=== PATIENT | male | born 1990 | race Caucasian/White ===

== ENCOUNTER → 2020-08-11 13:46 | Outpatient (CLI) | payer OTHER, SELFPAY ==
--- NOTE | ~2020-08-11 | XR_ITS ---
XR lumbar spine min 4V 08/11/2020 14:01 Indication: Low back pain Procedure: 5 views lumbar spine Comparison: No prior studies for comparison. Findings: Normal lumbar lordosis. Vertebral body heights are maintained. Mild disc narrowing at L4-5 and L5-S1. There is mild facet hypertrophy at L4-5 and L5-S1. No fracture, subluxation or spondylolis thesis. Pedicles intact. Sacral foramen are symmetric. Impression: 1: Mild lumbar spondylosis. Reviewed, dictated and finalized at location B. Impression: 1: Mild lumbar spondylosis.
== END ==
PROVIDERS: PCP Family Medicine; Visit Provider Family Medicine
DX: M47.817 Spondylosis without myelopathy or radiculopathy, lumbosacral region (principal); M54.42 Lumbago with sciatica, left side
CPT/HCPCS: 72110

== ENCOUNTER 2020-08-17 08:37 | Emergency (ER) | payer OTHER, SELFPAY ==
[2020-08-17 08:48] VITALS: BP 137/77; PULSE 74; RESP 16; TEMP 35.8; O2SAT 100
[2020-08-17] MEDS: LIDOCAINE 5% PATCH 1 PATCH TRANSDERM (09:52)
[2020-08-17 09:55] VITALS: BP 125/78; PULSE 60; RESP 16; O2SAT 100
--- NOTE | 2020-08-17 10:15 | ED.GENADULT ---
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 pain is localized to the left lower back radiates down to the left heel patient has been in touch with primary care for this took steroids and meloxicam with minimal improvement patient had x-rays which show degenerative changes in the lumbar spine per patient patient was referred to emergency department today due to increasing pain patient denies other injury or trauma or recent illness presents in no distress resting comfortably in the room Related Data Allergies Allergy/AdvReac Type Severity Reaction Status Date / Time levofloxacin Allergy Verified 02/28/13 12:17 Review of Systems Review of Systems: All systems reviewed & are unremarkable except as noted in HPI and below PMFSH Past Medical History Medical History Acute bilateral low back pain with left-sided sciatica Adult BMI 30.0-30.9 kg/sq m Gastroenteritis and colitis, viral Subcutaneous nodule (~08/09/20) left buttock 1 cm Family History Family History Mother Patient's mother is in good health Social History Social History Smoking status: Never smoker Alcohol intake: current Drinks per week: 2 Substance use: current Substance use type: marijuana Gender identity (if verbalized by the patient): Male Exam Narrative: Exam Narrative: GENERAL: Well-appearing, well-nourished, and in no acute distress. HEAD: Normocephalic, atraumatic. EYES: PERRLA and EOMI. ENT: Nares clear, no rhinorrhea or epistaxis. Mucous membranes moist. CHEST: Clear to auscultation. No respiratory distress. No wheezes rales or rhonchi HEART: Regular rate and rhythm. No murmur heard. EXTREMITIES: Normal range of motion. No edema. Tenderness over the left SI joint no deformities noted no midline tenderness SKIN: Warm, dry, no rash. NEURO: No focal deficits. Alert and oriented x3. Cranial nerves II through XII grossly intact. Normal speech and gait. Motor and sensory intact and symmetrical in the extremities. PSYCH: Normal mood and affect. Course Course Emergency Course: Patient in the room no distress plan for patient to follow with primary care and pain management if he chooses will go back to primary care to discuss over modalities such as physical therapy and for referrals if necessary patient agrees with this plan will be placed on lidocaine patch muscle relaxers as an adjunct. Patient afebrile nontoxic-appearing no distress felt appropriate for outpatient reevaluation also provided with reasons to return Vital Signs Vital signs: Vital Signs Temperature 96.4 F L 08/17/20 08:48 Pulse Rate 74 08/17/20 08:48 Respiratory Rate 16 08/17/20 08:48 Blood Pressure 137/77 08/17/20 08:48 Pulse Oximetry 100 08/17/20 08:48 Temperature 96.4 F L 08/17/20 08:48 Pulse Rate 60 08/17/20 09:55 Respiratory Rate 16 08/17/20 09:55 Blood Pressure 125/78 08/17/20 09:55 Pulse Oximetry 100 08/17/20 09:55 Medical Decision Making MDM Narrative Medical decision making narrative: Patients pain is positional in nature and localized to back without signs of cord compression or cauda equina based on neurological exam, skeletal exam and history. No fever or other significant factors to suggest osteomyelitis or spinal epidural abscess. No symptoms or signs to suggest pain is referred from abdominal or / cardiopulmonary sources. No pulsatile masses noted on exam. Patient ambulates with steady gait and
== END 2020-08-17 10:34 | disposition home or self-care (01) ==
PROVIDERS: Emergency Provider Emergency Medicine; PCP Family Medicine
DX: M54.16 Radiculopathy, lumbar region (principal)
CPT/HCPCS: 99283; A9270

== ENCOUNTER → 2020-09-09 11:11 | Outpatient (CLI) | payer OTHER, SELFPAY ==
--- NOTE | ~2020-09-09 | MR_ITS ---
EXAMINATION: MR lumbar spine wo con DATE: 09/09/2020 12:00 INDICATION: Low back pain. Lumbar radiculopathy. TECHNIQUE: Magnetic resonance imaging (MRI) of the lumbar spine was performed without intravenous con trast. Sequences included sagittal T2-weighted FSE, sagittal T2-weighted FS FSE, sagittal T1-weighted FSE, and axial T2-weighted FSE. COMPARISON: Lumbar spine radiographs 08/11/2020 FINDINGS: There is 3 mm retrolisthesis of L5 on S1. There is mild chronic anterior wedging of T12 vinny tebral body. There are Schmorl's nodes from T11-T12 through L1-L2 and at superior endplate of L4. The re is moderately decreased disc height at L5-S1. The distal spinal cord signal intensity is normal. T he conus medullaris is at L1. The following disc levels are specifically discussed: L1-L2 through L4-L5: The disc does not extend beyond the endplate margin. There is no facet joint ost eoarthritis. There is no neural foraminal stenosis. There is no central canal stenosis. L5-S1: The disc is bulging with superimposed left central and subarticular zone extrusion with mass e ffect on left S1 nerve root in left lateral recess. A right subarticular zone extrusion abuts right S 1 nerve root in right lateral recess. There is mild bilateral facet joint osteoarthritis. There is mi ld right and moderate left neural foraminal stenosis. There is mild central canal stenosis. IMPRESSION: 1. Moderate spondylosis at L5-S1 where extrusions abut the right S1 nerve root and exert mass effect on the left S1 nerve root. Reviewed, dictated and finalized at location A.
== END ==
PROVIDERS: PCP Family Medicine; Visit Provider Nurse Practitioner Adult Health
DX: M47.26 Other spondylosis with radiculopathy, lumbar region (principal); M51.27 Other intervertebral disc displacement, lumbosacral region
CPT/HCPCS: 72148

== ENCOUNTER 2023-04-17 17:27 | Emergency (ER) | payer OTHER, SELFPAY ==
--- NOTE | ~2023-04-17 | CT_ITS ---
EXAMINATION: CT cervical spine wo con DATE: 04/17/2023 20:04 INDICATION: Head and neck trauma TECHNIQUE: Computed tomography (CT) of the cervical spine was performed without intravenous contrast. Automated exposure control and iterative reconstruction technique were employed. The dose-length pro duct was 465.00 mGy-cm. COMPARISON: None FINDINGS: Alignment is normal. Vertebral body and disc heights are normal. No fracture. Cervical uncovertebral joints are normal. Multilevel mild facet osteoarthritis at a few levels in the cervical spine and mor e prominently in the upper thoracic spine. No central canal or neural foraminal stenosis. Cervical so ft tissues are unremarkable. Visualized apices of lungs are clear. IMPRESSION: 1. No acute osseous abnormality. Reviewed, dictated and finalized at location A. CURER
--- NOTE | ~2023-04-17 | CT_ITS ---
EXAMINATION: CT brain wo con DATE: 04/17/2023 20:04 INDICATION: Head injury and syncope TECHNIQUE: Computed tomography (CT) of the head was performed without intravenous contrast. Sagittal and coronal reconstructions were performed. The mA was adjusted according to patient size. Iterative reconstruction technique was employed. The dose-length product was 605.33 mGy-cm. COMPARISON: None FINDINGS: No fracture. No acute intracranial hemorrhage, acute infarction or abnormal extra axial fluid collect ion. Ventricles are normal and symmetric. No mass/mass effect. Mild mucosal thickening in the left sp henoid sinus. The orbits, paranasal sinuses and mastoid air cells are normal. IMPRESSION: 1. Normal brain. No fracture or acute intracranial process. Reviewed, dictated and finalized at location A. [employer] MANAGER
--- NOTE | ~2023-04-17 | XR_ITS ---
EXAMINATION: XR chest 1V portable DATE: 04/17/2023 19:35 INDICATION: Syncopal episode one day prior. TECHNIQUE: frontal view of the chest was obtained. COMPARISON: Chest radiograph dated 02/28/2013 FINDINGS: The lungs remain clear with no focal airspace opacities, pulmonary edema, pleural effusion or pneumot horax. The cardiomediastinal silhouette is normal. Visualized bones and soft tissues are unremarkable . IMPRESSION: 1. Normal chest radiograph. Reviewed, dictated and finalized at location A. 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 Normal chest radiograph.
[2023-04-17 17:32] VITALS: BP 146/74; PULSE 63; RESP 16; TEMP 36.9; O2SAT 100
--- NOTE | 2023-04-17 18:52 | ECG_ITS ---
Measurements Intervals [place] Rate: 66 P: 19 DC: 146 QRS: 96 QRSD: 136 T: 44 QT: 376 QTc: 396 Interpretive Statements SINUS RHYTHM RIGHT AXIS DEVIATION INTRAVENTRICULAR CONDUCTION DELAY BORDERLINE ECG NO PREVIOUS ECG AVAILABLE FOR COMPARISON Electronically Signed On 04-17-2023 20:00:56 [employer] DRAFT[employer]ERSON by Sammy Michaels D.O.
[2023-04-17 19:08] VITALS: BP 135/79; PULSE 66; RESP 14; O2SAT 98
[2023-04-17 19:15] LABS: Basophils Absolute Auto 0.1 K/mm3 (0.0-0.1); Basophils Percent Auto 0.5 % (0.2-1.2); Eosinophils Absolute Auto 0.1 K/mm3 (0-0.3); Eosinophils Percent Auto 0.7 % (0-4.4); Hematocrit 43.9 % (42.0-52.0); Hemoglobin 14.9 g/dL (14.0-18.0); Immature Granulocyte Absolute 0.03 K/mm3 (0.00-0.031); Immature Granulocyte Percent A 0.3 % (0-0.5); Lymphocytes Absolute Auto 2.17 K/mm3 (0.9-3.2); Lymphocytes Percent Auto 20.2 % (18.3-44.2); Mean Corpuscular HGB Conc 33.9 g/dl (32-36); Mean Corpuscular Volume 88.3 fl (80-100); Mean Platelet Volume 10.6 fl (7.4-10.4); Monocytes Absolute Auto 0.7 K/mm3 (0.1-0.6); Monocytes Percent Auto 6.1 % (2.6-8.5); Neutrophils Absolute Auto 7.8 K/mm3 (1.3-6.7); Neutrophils Percent Auto 72.2 % (45.5-73.1); Platelet Count Result 230 k/mm3 (150-375); Red Blood Count 4.97 M/mm3 (4.6-6.20); Red Cell Distribution Width 12.2 % (11.5-14.5); White Blood Count 10.7 K/mm3 (4.5-10.0)
[2023-04-17 19:22] LABS: Alanine Aminotransferase 31 U/L (6-50); Albumin Level 4.6 g/dL (3.5-5.1); Alkaline Phosphatase 89 U/L (38-126); Anion Gap 10 mmol/L (8-16); Aspartate Amino Transferase 30 U/L (17-59); Bilirubin,Total 0.5 mg/dL (0.2-1.3); Blood Urea Nitrogen 14 mg/dL (9-20); Calcium 9.4 mg/dL (8.4-10.2); Carbon Dioxide 22 mmol/L (22-30); Chloride 106 mmol/L (98-107); Estimated CRCL calculation 132 ml/min; Estimated Glomerular Filt Rate > 60; Glucose 102 mg/dL (65-110); Sodium 138 mmol/L (137-145)
[2023-04-17] MEDS: SODIUM CHLORIDE 0.9% IV 1,000 ML 999 ML IV CONT (19:38)
[2023-04-17 19:40] VITALS: BP 124/84; PULSE 69; RESP 12; O2SAT 98
[2023-04-17 20:10] LABS: Lactic Acid Reflex 0.7 mmol/L (0.7-2.0)
[2023-04-17 20:18] LABS: Appearance Urine Clear (Clear); Bilirubin Urine Negative (Negative); Blood Urine Negative (Negative); Color Urine Yellow (Yellow); Glucose Urine UA Negative (Negative); Ketones Urine Negative (Negative); Leukocyte Esterase Ur Negative LEU/UL (Negative); Nitrate Urine Negative (Negative); Protein Urine Negative (Negative); Specific Grav Ur 1.011 (1.001-1.035); Urobilinogen Urine 0.2 mg/dL (<2.0); pH Urine 6.5 (5.0-9.0)
[2023-04-17 20:23] LABS: Troponin I < 0.012 ng/mL (0.000-0.034)
--- NOTE | 2023-04-17 20:29 | ED.GENADULT ---
HPI - General Adult General Chief complaint: Unspecified Stated complaint: SYNCOPE HIT HEAD. ?SZ Time Seen by Provider: 04/17/23 19:10 History of Present Illness HPI narrative: Was 33-year-old gentleman who presents emerged from with chief complaint of syncopal episode. The patient reports that he had a ingrown hair that developed into a pimple on his penis patient reports that his significant other was helping him during the pimple and after words with some blood that drained out of the lesion and he got very lightheaded and passed out. The patient states he struck the back of his head on the left side and reports that he has pain in his neck and reports that he has felt sore today. The patient decided to come to the emergency department for evaluation. Patient reports no other episode of syncope. Related Data Home Medications Medication Instructions Recorded Confirmed medical cannabis BYMOUTH 01/22/22 02/03/23 magnesium oxide 500 mg capsule 500 mg PO BID 07/22/22 02/03/23 cetirizine 10 mg tablet (Zyrtec) 10 mg PO DAILY PRN 02/03/23 02/03/23 Allergies Allergy/AdvReac Type Severity Reaction Status Date / Time levofloxacin Allergy Unknown Verified 05/27/22 14:03 Review of Systems Review of Systems: A 10 system review of systems was completed on the patient and is negative except for what is stated in the HPI. Nursing and ancillary documentation was reviewed. [facility] Past Medical History Medical History Acute bilateral low back pain with left-sided sciatica Acute non-recurrent maxillary sinusitis Acute sinusitis Adult BMI 30.0-30.9 kg/sq m BMI 28.0-28.9,adult BMI 29.0-29.9,adult Chronic low back pain with left-sided sciatica MRI of the lumbar spine on 09/09/2020 with moderate to severe lumbar spondylosis at L5-S1 with extrusion and impingement on the left S1 nerve root. 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 Family History Family History Mother Patient's mother is in good health Social History Social History Smoking status: Never smoker Alcohol intake: current Alcohol use details: Rarely Substance use: current Substance use type: marijuana Lack of Transportation: No Lack of Food: Never True Current Housing: I Have Housing Concerned About Future Housing: No Difficulty Paying Gas/Electric Bills: No Difficulty Paying for Meds: No Currently Unemployed: No Education: Master's Degree or Higher Difficulty w/ Childcare or Family Care: No Gender identity (if verbalized by the patient): Male Exam Narrative: GENERAL: Well-appearing, well-nourished, and in no acute distress. HEAD: Normocephalic, atraumatic. EYES: PERRLA and EOMI. ENT: Nares clear, no rhinorrhea or epistaxis. Mucous membranes moist. Small abrasion present to the left auricle with slight hyperemia of the left arm pain but no hematoma and no laceration. NECK: Supple. CHEST: Clear to auscultation. No respiratory distress. HEART: Regular rate and rhythm. No murmur heard. Normal peripheral pulses. ABDOMEN: Soft, nontender, nondistended, normal active bowel sounds. : Small pebble present on the shaft of the penis EXTREMITIES: Normal range of motion. No edema. SKIN: Warm, dry, no rash. NEURO: No focal deficits. Alert and oriented x3. PSYCH: Normal mood and affect. Course Vital Signs Vital signs: Vital Signs Temperature 36.9 C 04/17/23 17:32 Pulse Rate 63 04/17/23 17:32 Respiratory Rate 16 04/17/23 17:32 Blood Pressure 146/74 H 04/17/23 17:32 Puls
[2023-04-17 20:31] LABS: Add Urine Microscopic? NO
[2023-04-17 20:46] VITALS: BP 124/86; PULSE 66; RESP 12; TEMP 36.7; O2SAT 95
== END 2023-04-17 20:47 | disposition home or self-care (01) ==
PROVIDERS: Emergency Medicine; Emergency Provider Emergency Medicine; PCP Family Medicine
DX: R55 Syncope and collapse (principal); S09.90XA Unspecified injury of head, initial encounter; W22.8XXA Striking against or struck by other objects, initial encounter
CPT/HCPCS: 36415; 70450; 71045; 72125; 80053; 81003; 83605; 83735; 84484; 85025; 93005; 96360; 99284; J7030

== ENCOUNTER 2023-04-27 17:15 | Emergency (ER) | payer OTHER, SELFPAY ==
[2023-04-27 17:20] VITALS: BP 135/81; PULSE 65; RESP 14; TEMP 36.3; O2SAT 100
--- NOTE | 2023-04-27 17:20 | ED.URI ---
HPI - URI/Sore Throat General Chief Complaint: Upper Respiratory Infection Stated Complaint: Fever/Dizziness/Light Headed History of Present Illness HPI Narrative: PATIENT PRESENTS WITH NASAL CONGESTION COUGH NO SHORTNESS OF BREATH NO CHEESE CHEST PAIN NO FEVER NO BODY ACHES. PATIENT HAS TAKEN SEVERAL HOME COVID TEST WHICH HAVE BEEN NEGATIVE. Related Data Home Medications Medication Instructions Recorded Confirmed medical cannabis BYMOUTH 01/22/22 02/03/23 Allergies Allergy/AdvReac Type Severity Reaction Status Date / Time levofloxacin Allergy Confusion Verified 04/27/23 17:37 Review of Systems Review of Systems: CONSTITUTIONAL: DENIES CHILLS, OR SWEATS. REPORTS FEVER AND GENERALIZED BODY ACHES EYES: DENIES VISUAL CHANGES, REDNESS, OR DISCHARGE. ENT: DENIES OTALGIA. REPORTS NASAL CONGESTION RUNNY NOSE AND SORE THROAT CARDIOVASCULAR: DENIES CHEST PAIN, PALPITATIONS, OR EDEMA. RESPIRATORY: DENIES DYSPNEA. REPORTS OCCASIONAL COUGH GASTROINTESTINAL: DENIES ABDOMINAL PAIN, NAUSEA, VOMITING, OR DIARRHEA. GENITOURINARY: DENIES DYSURIA OR HEMATURIA. SKIN: DENIES RASH OR ITCHING. MUSCULOSKELETAL: DENIES BACK PAIN, JOINT PAIN, OR MYALGIA. REPORTS GENERALIZED BODY ACHES NEUROLOGIC: DENIES HEADACHE, NUMBNESS, OR WEAKNESS. PSYCHIATRIC: DENIES ANXIETY OR DEPRESSION. [facility] Past Medical History Medical History Acute bilateral low back pain with left-sided sciatica Acute non-recurrent maxillary sinusitis Acute sinusitis Adult BMI 30.0-30.9 kg/sq m BMI 28.0-28.9,adult BMI 29.0-29.9,adult Chronic low back pain with left-sided sciatica MRI of the lumbar spine on 09/09/2020 with moderate to severe lumbar spondylosis at L5-S1 with extrusion and impingement on the left S1 nerve root. 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 Family History Family History Mother Patient's mother is in good health Social History Social History Smoking status: Never smoker Alcohol intake: current Alcohol use details: Rarely Substance use: current Substance use type: marijuana Lack of Transportation: No Lack of Food: Never True Current Housing: I Have Housing Concerned About Future Housing: No Difficulty Paying Gas/Electric Bills: No Difficulty Paying for Meds: No Currently Unemployed: No Education: Master's Degree or Higher Difficulty w/ Childcare or Family Care: No Gender identity (if verbalized by the patient): Male Comments AT TIME OF SIGNATURE, AGREE WITH NURSING PAST MEDICAL, SURGICAL, SOCIAL AND FAMILY HISTORY. THERE IS NO RELEVANT FAMILY HISTORY PERTINENT TO THE PRESENTING COMPLAINT Exam Narrative: THE PATIENT IS A WELL-DEVELOPED, WELL-NOURISHED IN NO ACUTE DISTRESS. SKIN: SKIN IS WARM AND DRY WITHOUT ERYTHEMA, SWELLING OR EXUDATE. THERE IS GOOD TURGOR. NO TENTING. HEAD: ATRAUMATIC. NORMOCEPHALIC. NO TEMPORAL OR SCALP TENDERNESS. EYES: MOIST AND BRIGHT. SCLERA AND CONJUNCTIVAE NORMAL. NO DISCHARGE. PERRLA. EXTRAOCULAR MOTIONS INTACT. GROSS VISUAL ACUITY INTACT. EARS: PINNA IS NORMAL SHAPE AND CONTOUR. CLEAR EXTERNAL AUDITORY CANALS. TM PEARLY AVILA WITH GOOD CONE OF LIGHT, NO ERYTHEMA OR SUPPURATION. BILATERAL CERUMEN NOTED NO GROSS HEARING DEFICIT. NOSE: PINK, MOIST MUCOSA WITH GOOD AIR MOVEMENT. CLEAR RHINORRHEA WITHOUT NASAL FLARING. SEPTUM MIDLINE. MOUTH: MOIST MUCOUS MEMBRANES. THROAT; MILD ERYTHEMA NOTED TO POSTERIOR OROPHARYNX WITH MODERATE POSTNASAL DRAINAGE. WITHOUT EXUDATE OR ULCERATION.. UVULA MIDLINE. NORMAL MOVEMENT OF SOFT PALATE. NECK: SUPPLE AND
== END 2023-04-27 17:48 | disposition home or self-care (01) ==
PROVIDERS: Emergency Provider Nurse Practitioner Family; PCP Family Medicine
DX: B34.9 Viral infection, unspecified (principal); J10.1 Influenza due to other identified influenza virus with other respiratory manifestations; F12.90 Cannabis use, unspecified, uncomplicated
CPT/HCPCS: 87804; 99213; G0463

== ENCOUNTER 2024-04-17 11:29 | Emergency (ER) | payer OTHER, SELFPAY ==
[2024-04-17 11:36] VITALS: BP 123/83; PULSE 79; RESP 20; TEMP 36.6; O2SAT 98
[2024-04-17 11:46] VITALS: BP 123/83; PULSE 79; RESP 20; TEMP 36.6; O2SAT 98
--- NOTE | 2024-04-17 12:00 | ED.URI ---
HPI - URI/Sore Throat General Chief Complaint: Upper Respiratory Infection Stated Complaint: sinus issues Time Seen by Provider: 04/17/24 12:00 Source: patient, RN notes reviewed and old records reviewed Mode of arrival: ambulatory Limitations: no limitations History of Present Illness HPI Narrative: 34 year old male accompanied by family presents to express care with complaints of cough, post nasal drainage some body aches and sinus pressure for the past 3 weeks. Patient reports that he has had some low grade fevers. He states that he has been taking Theraflu and also Robitussin cough medication for cough which tends to be worse in the mornings. He reports no shortness of breath, admits to expectoration of some yellowish brown phlegm. MD elicited complaint: cough, rhinorrhea, nasal congestion, sinus pain and other (body aches) Pertinent past history: other (epilepsy) Onset (ago): week(s) (3) Consistency: constant Pain scale (0-10): 3 Description of mucous: yellow and other (brownish) Able to tolerate fluids by mouth: Yes Treatments prior to arrival: other (Theraflu and also Robitussin cough medication) Related Data Allergies Allergy/AdvReac Type Severity Reaction Status Date / Time levofloxacin Allergy Confusion Verified 04/27/23 17:37 Review of Systems Review of Systems: CONSTITUTIONAL: Reports malaise,no chills, sweats, states low grade fevers. EYES: Denies visual changes, redness, or discharge. ENT: Reports rhinorrhea, congestion, sinus pain, no otalgia and no sore throat. CARDIOVASCULAR: Denies chest pain, palpitations, or edema RESPIRATORY: Reports productive cough.? Denies dyspnea. GASTROINTESTINAL: Denies abdominal pain, nausea, vomiting, diarrhea SKIN: Denies rash or itching. MUSCULOSKELETAL: reports myalgia. NEUROLOGIC: reports headache. All systems reviewed & are unremarkable except as noted in HPI and below PMFSH Past Medical History Medical History Acute bilateral low back pain with left-sided sciatica Acute non-recurrent maxillary sinusitis Acute sinusitis Adult BMI 30.0-30.9 kg/sq m BMI 28.0-28.9,adult BMI 29.0-29.9,adult Chronic low back pain with left-sided sciatica MRI of the lumbar spine on 09/09/2020 with moderate to severe lumbar spondylosis at L5-S1 with extrusion and impingement on the left S1 nerve root. 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 Family History Family History Mother Patient's mother is in good health Social History Social History Smoking status: Never smoker Alcohol intake: current Alcohol use details: Rarely Substance use: current Substance use type: marijuana Lack of Transportation: No Lack of Food: Never True Current Housing: I Have Housing Concerned About Future Housing: No Difficulty Paying Gas/Electric Bills: No Difficulty Paying for Meds: No Currently Unemployed: No Education: Master's Degree or Higher Difficulty w/ Childcare or Family Care: No Gender identity (if verbalized by the patient): Male Comments At time of signature, agree with nursing past medical, surgical, social and family history. There is no relevant family history pertinent to the presenting complaint Exam Narrative: GENERAL: Well-appearing, well-nourished, and in no acute distress. HEAD: Normocephalic EYES: PERRLA, conjunctivae clear ENT: Nares clear, turbinates edematous and erythematous, yellow discharge positive sinus pressure and headache. Mucous membranes moist. TM pearly chaudhari with dull light reflex bilaterally; no tragal tenderness. Oropharynx erythematous without lesions. Tonsils not present and throat without exudate, no drooling, no hoarseness, no trismus, uvula midline. post nasal drainage NECK: Supple. No lymphadenopathy CHEST: Clear to auscultation, breath sounds equal. No wheezing, rhonchi, rales, or stridor. No respiratory distress, speaks in full sentences.productive cough SAO2 98% on room air HEART: Regular rate and rhythm. No murmur heard. SKIN: Warm, dry, no rash. NEURO: Alert and oriented x3. PSYCH: Normal mood and affect Course Course Emergency Course: Patient is aware of diagnosis, understands and agrees to treatment plan.? Anticipatory guidance given.? Patient agrees to follow-up as directed and is aware of reasons to seek care at the emergency department. Portions of this record may have been created with voice recognition software Level of Care: Express Care Visit Vital Signs Vital signs: Vital Signs Temperature 36.6 C 04/17/24 11:36 Pulse Rate 79 04/17/24 11:36 Respiratory Rate 20 04/17/24 11:36 Blood Pressure 123/83 04/17/24 11:36 Pulse Oximetry 98 04/17/24 11:36 Oxygen Delivery Room Air 04/17/24 11:36 Temperature 36.6 C 04/17/24 11:46 Pulse Rate 79 04/17/24 11:46 Respiratory Rate 20 04/17/24 11:46 Blood Pressure 123/83 04/17/24 11:46 Pulse Oximetry 98 04/17/24 11:46 Oxygen Delivery Room Air 04/17/24 11:46 Reviewed MDM - URI/Sore Throat MDM Narrative Medical decision making narrative: Differential diagnosis considered: Roach virus, strep pharyngitis, allergic rhinitis, upper respiratory tract infection, sinusitis, rhinosinusitis, nasopharyngitis. viral pharyngitis, otitis media, otitis externa, pneumonia, bronchitis, viral cough syndrome, viral syndrome, and influenza.? Exam findings show no acute concerns or changes; patient is non-toxic appearing and is in no distress.? Patient is appropriate for outpatient treatment and follow-up. Differential Diagnosis Differential diagnosis: Likely upper respiratory infection, sinusitis, viral infection, bronchitis and other (acute cough) Medical Records Attestation: I reviewed the patient's medical records. Lab Data Attestation: I reviewed the patient's lab results. Critical Care Time Critical Care Time Critical Care Time: No Discharge Plan Discharge Clinical Impression: Sinusitis, acute, Cough Patient Disposition: Home, Self-Care Condition: Stable Instructions: Antibiotic Form, Sinusitis (ED) Additional Instructions: Increase fluids especially juices and water [id number] cough and cold medicine of your choice for your symptoms Zyrtec Claritin or Shannon daily may include plain Sudafed 1 tab in a.m. and 1 in p.m. Steroids as directed--take with food Tylenol or ibuprofen for any fever/ pain heat to the face 20-30 minutes 4-6 times a day for pain Salt water gargles, throat lozenges or throat sprays as desired Antibiotic as directed--finished the medication If your symptoms persist, change or worsen significantly before you can contact your personal physician then please, without delay, go to the emergency department for further evaluation. Follow-up with PCP in 7-10 days or sooner if needed Follow up with PCP soon in regards to your blood pressure which is elevated above threshold for referral. Blood pressure above 120/80 may indicate pre-hypertension. Minimal 123/83 Prescriptions: New amoxicillin-pot clavulanate 875-125 mg tablet 1 tablet PO Q12H Qty: 20 0RF prednisone 20 mg tablet 20 mg PO BID Qty: 10 0RF Follow-up/Referrals: Marcus Taylor MD [Primary Care Provider] - Time of Disposition: 12:15 Quality [place] Coma Scale Eyes: Open Verbal: Oriented and Alert Motor: Follows Commands [place] Coma Total Score: 15
== END 2024-04-17 12:20 | disposition home or self-care (01) ==
PROVIDERS: Emergency Provider Registered Nurse; PCP Family Medicine
DX: J01.90 Acute sinusitis, unspecified (principal); R05.9 Cough, unspecified; Z86.16 Personal history of COVID-19
CPT/HCPCS: 99213; G0463

== ENCOUNTER 2024-04-25 09:54 | Emergency (ER) | payer OTHER, SELFPAY ==
[2024-04-25 10:18] VITALS: BP 115/82; PULSE 119; RESP 18; TEMP 37.5; O2SAT 99
[2024-04-25] MEDS: ONDANSETRON HCL ODT 4 MG TABLET PO (10:35)
[2024-04-25 10:42] LABS: EDCOVIDSCREEN Negative (Negative); EDINFLUASCREEN Negative (Negative); EDINFLUBSCREEN Negative (Negative)
--- NOTE | 2024-04-25 11:18 | ED_ITS ---
HPI - General Adult General Chief complaint: Nausea/Vomiting/Diarrhea Stated complaint: Vomiting/Diarrhea Source: patient Mode of arrival: ambulatory Limitations: no limitations History of Present Illness HPI narrative: Patient presents for evaluation of GI symptoms since last night. Reports nausea, vomiting, diarrhea. He has some abdominal cramping while vomiting but no abdominal pain otherwise. No fever, chills, cough, shortness of breath. No recent sick contacts to his knowledge. He ate a roast beef sandwich prior to the time of symptom onset. Was unable to sleep last night secondary to the frequency of his vomiting and episodes of diarrhea. He also had two alcohol- containing beverages. He consumes ETOH socially one to two times per month. He does use cannabis but had not used prior to time of symptom onset. He has been on augmentin for a sinus infection. Related Data Allergies Allergy/AdvReac Type Severity Reaction Status Date / Time levofloxacin Allergy Confusion Verified 04/25/24 10:16 Review of Systems Review of Systems: CONSTITUTIONAL: Denies fever, chills, or sweats. EYES: Denies visual changes, redness, or discharge. ENT: Denies rhinorrhea, congestion, sore throat, or otalgia. CARDIOVASCULAR: Denies chest pain, palpitations, or edema. RESPIRATORY: Denies cough or dyspnea. GASTROINTESTINAL: reports nausea, vomiting, diarrhea, and abdominal cramping which is only present while vomiting GENITOURINARY: Denies dysuria or hematuria. SKIN: Denies rash or itching. MUSCULOSKELETAL: Denies back pain, joint pain, or myalgia. NEUROLOGIC: Denies headache, numbness, dizziness, or weakness. PSYCHIATRIC: Denies anxiety or depression. [facility] Past Medical History Medical History (Updated 04/25/24 @ 11:58 by Mauro Garcia, [facility], ) Acute bilateral low back pain with left-sided sciatica Acute non-recurrent maxillary sinusitis Acute sinusitis Adult BMI 30.0-30.9 kg/sq m BMI 28.0-28.9,adult BMI 29.0-29.9,adult Chronic low back pain with left-sided sciatica MRI of the lumbar spine on 09/09/2020 with moderate to severe lumbar spondylosis at L5-S1 with extrusion and impingement on the left S1 nerve root. 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 Surgical History Surgical History No pertinent past surgical history Family History Family History Mother Patient's mother is in good health Social History Social History Smoking status: Never smoker Alcohol intake: current Alcohol use details: Rarely Substance use: current Substance use type: marijuana Lack of Transportation: No Lack of Food: Never True Current Housing: I Have Housing Concerned About Future Housing: No Difficulty Paying Gas/Electric Bills: No Difficulty Paying for Meds: No Currently Unemployed: No Education: Master's Degree or Higher Difficulty w/ Childcare or Family Care: No Gender identity (if verbalized by the patient): Male Exam Narrative: GENERAL: Well-appearing, well-nourished, and in no acute distress. HEAD: Normocephalic, atraumatic. EYES: PERRLA and EOMI. ENT: Nares clear, no rhinorrhea or epistaxis. Mucous membranes moist. Oropharynx without tonsillar hypertrophy exudate or other lesions. Bilateral TMs pearly chaudhari nonbulging NECK: Supple. No adenopathy or masses. No carotid bruits or JVD CHEST: Clear to auscultation. No respiratory distress. No wheezes rales or rhonchi HEART: Regular rate and rhythm. No murmur heard. Normal peripheral pulses. ABDOMEN: Soft, nontender, nondistended, normal active bowel sounds. EXTREMITIES: Normal range of motion. No edema. SKIN: Warm, dry, no rash. NEURO: No focal deficits. Alert and oriented x3. PSYCH: Normal mood and affect. Course Course Emergency Course: This is a 34-year-old male who presented for evaluation of nausea, vomiting, diarrhea. Flu and COVID testing negative. He has no abdominal tenderness to suggest colitis. He was given zofran for his symptoms. He was able to tolerate oral fluids. His heart rate normalized. He requested his discharge orders home. Will DC with Lomotil and Zofran. Start with clear liquids and can advance to bland diet as tolerated. If he develops abdominal pain his blood or mucus in stool or intractable vomiting, he should go immediately to emergency department. Otherwise he should follow up with primary provider this week. Pt in agreement with plan of care. Level of Care: Express Care Visit Vital Signs Vital signs: Vital Signs Temperature 37.5 C 04/25/24 10:18 Pulse Rate 119 H 04/25/24 10:18 Respiratory Rate 18 04/25/24 10:18 Blood Pressure 115/82 04/25/24 10:18 Pulse Oximetry 99 04/25/24 10:18 Oxygen Delivery Room Air 04/25/24 10:18 Temperature 37.5 C 04/25/24 10:18 Pulse Rate 119 H 04/25/24 10:18 Respiratory Rate 18 04/25/24 10:18 Blood Pressure 115/82 04/25/24 10:18 Pulse Oximetry 99 04/25/24 10:18 Oxygen Delivery Room Air 04/25/24 10:18 Medical Decision Making Vital Signs Vital Signs: Vital Signs Temperature 37.5 C 04/25/24 10:18 Pulse Rate 119 H 04/25/24 10:18 Respiratory Rate 18 04/25/24 10:18 Blood Pressure 115/82 04/25/24 10:18 Pulse Oximetry 99 04/25/24 10:18 Oxygen Delivery Room Air 04/25/24 10:18 Temperature 37.5 C 04/25/24 10:18 Pulse Rate 119 H 04/25/24 10:18 Respiratory Rate 18 04/25/24 10:18 Blood Pressure 115/82 04/25/24 10:18 Pulse Oximetry 99 04/25/24 10:18 Oxygen Delivery Room Air 04/25/24 10:18 Lab Data Labs: Lab Results 04/25/24 Range/Units 10:40 POC Influenza A Ag Negative (Negative) POC Influenza B Ag Negative (Negative) POC SARS CoV-2 Ag Negative (Negative) Discharge Plan Discharge Clinical Impression: Nausea & vomiting, Diarrhea Patient Disposition: Home, Self-Care Condition: Stable Instructions: Antibiotic Form, Acute Nausea and Vomiting (ED), Acute Diarrhea (ED) Patient Language: Croatian Prescriptions: New diphenoxylate-atropine [Lomotil] 2.5-0.025 mg tablet 1 tablet PO TID PRN (Reason: diarrhea) Qty: 15 0RF ondansetron 4 mg tablet,disintegrating 4 mg PO Q6H PRN (Reason: nausea and vomiting) Qty: 20 0RF No Action amoxicillin-pot clavulanate 875-125 mg tablet 1 tablet PO Q12H Qty: 20 0RF Follow-up/Referrals: Marcus Taylor MD [Primary Care Provider] - Time of Disposition: 11:58
== END 2024-04-25 12:00 | disposition home or self-care (01) ==
PROVIDERS: Emergency Provider Nurse Practitioner; PCP Family Medicine
DX: R11.2 Nausea with vomiting, unspecified (principal); R19.7 Diarrhea, unspecified; Z20.822 Contact with and (suspected) exposure to COVID-19; F12.90 Cannabis use, unspecified, uncomplicated; Z86.16 Personal history of COVID-19
CPT/HCPCS: 87426; 87804; 99213; A9270; G0463

== ENCOUNTER → 2024-06-25 11:52 | Outpatient (CLI) | payer OTHER, SELFPAY ==
--- NOTE | ~2024-06-25 | XR_ITS ---
EXAMINATION: [id number] DATE: 06/25/2024 12:18 INDICATION: Right knee pain TECHNIQUE: AP and lateral views of the right knee were obtained. COMPARISON: None. FINDINGS: Bone alignment is normal. No fracture. Joint spaces are normal. Soft tissues are unremarkable with no knee joint effusion. IMPRESSION: 1. Normal right knee radiographs. Reviewed, dictated and finalized at location B. NE UNDERWRITER
--- OUTSIDE RECORDS SUMMARY | 2024-06-25 12:13 | XMS_ITS | Continuity of Care Document ---
Author Organization [facility] Address [address] [place] [address] Phone Care Team Providers Care Division Officer Weapons Department Name Role Phone Conversion MD, Doctor Unavailable Unavailabl e Allergies, Adverse Reactions, Alerts Substance Reaction Status Criticality No Known Drug Allergies Other Active No I nformation Medications Medication Instructions Dosage Effective Dates (start - stop) Status Comments PROAIR HFA 90MCG PUFFS 2 Q 4-6HR - Active INTAL 800MCG PUFFS 0 DIRECTE - Acti ve 3-4 puffs before exercise NASONEX 50 MCG NASAL SPRAY 2 QAM - Active ZYRTEC 10MG TABS 1 QD - Active FLOVENT HFA 44MCG PUFFS 2 BID - No Longer Active ALBUTEROL 90 MCG INHALER 2 Q 4HR - No Longer Active NASONEX 50 MCG NASAL SPRAY 2 QAM - No Longer Active NASONEX 50MCG APPLICS 2 QAM - No Longer Active ALBUTEROL 90MCG PUFFS 2 Q 4HR - No Longer Active Advance Directives Directive Yes / No Effective Date File Name No Information Encounters Encounter Description Practice Location Reason(s) For Visit Diagnoses Date Provider Providers Copied on Encounter [facility], [address], [place], [place], [id number], tel:[phone] Conversion Department No Information 1 Conversion Doctor. Harish Peña, [place], [address], . [facility], [address], [place], [place], [id number], tel:[phone] [facility] INTRINSIC ASTHMA NOSALLERGIC RHINITIS NEC 9 Robin Gonzalez. [address] [place] [address], [id number], . tel:[phone] [facility], [address], [place], [place], [id number], tel:[phone] [facility] No Information 4 Robin Gonzalez. [id number] [place] [address], [id number], [place]. tel:[phone] Family History Family Member Type Diagnosis Age At Onset No Information Payers Payer name Insurance type Covered alliance party ID Authoriza tion(s) No Information Social History Type Description Quantity Date Captured Comments Sex Male Smoking Status No Information Chief Complaint And Reason For Visit No Information Reason For Referral Reason For Referral No Information History Of Present Illness Encounter Date Complaint History Of Prese nt Illness No Information Functional Status Date Functional Assessmen t No Information Instructions Date Instruction Additional Infor mation No Information Assessments Type Assessment Date No Information Patient Care Teams Name Effective Dates (start - stop) Status Members No Information
== END ==
LOC: EXPTROY 11:55
PROVIDERS: PCP Nurse Practitioner Family; Visit Provider Nurse Practitioner Family
DX: M25.561 Pain in right knee (principal)
CPT/HCPCS: 73560